=== PATIENT | female | born 1990 | race Caucasian/White ===

== ENCOUNTER → 2016-10-20 | Outpatient (CLI) | payer OTHER ==
[~2016-10-20] MED LIST: CALC500C3 PO; LANS15CA6 PO; PRENTAB26 PO
== END | disposition home or self-care (01) ==
LOC: C.LABSPEC 14:26
PROVIDERS: ATTEND Obstetrics & Gynecology
DX: Z34.03 Encounter for supervision of normal first pregnancy, third trimester (principal)

== ENCOUNTER 2016-10-23 13:12 | Outpatient (CLI) | payer OTHER | END 2016-10-23 15:00 | disposition home or self-care (01) | LOC: C.OPB 13:12 → C.LD 13:12 → C.OPB 15:00 | PROVIDERS: ATTEND Obstetrics & Gynecology | DX: O16.3 Unspecified maternal hypertension, third trimester (principal); Z3A.37 37 weeks gestation of pregnancy ==

== ENCOUNTER 2016-10-28 12:40 | Inpatient (IN) | payer OTHER ==
[~2016-10-28] VITALS: Ht 167.6 cm; Wt 114.8 kg
[2016-10-28] MEDS ORDERED: LACTATED RINGER'S 1000ML 1,000 ML IV SCH (14:18)
[2016-10-28] MEDS ORDERED: LACTATED RINGER'S 1000ML 1,000 ML IV PRN (14:18)
[2016-10-28 14:26] VITALS: Ht 167.6 cm; Wt 114.8 kg
[2016-10-28] MEDS ORDERED: PRENTAB26 PO (14:30)
[2016-10-28] MEDS ORDERED: LANS15CA6 PO (14:30)
[2016-10-28] MEDS ORDERED: CALC500C3 PO (14:30)
[2016-10-28] MEDS ORDERED: MISOPROSTOLTAB 50 MCG TAB PO ONE (14:30)
[2016-10-28] MEDS ORDERED: PATIENT'S ALLERGY INFO NEEDS ENTERED SCH (14:30)
[2016-10-28 14:51] LABS: HEMATOCRIT 40.3 % (37-47); MEAN CELL VOLUME 88.8 fL (80-100); MEAN CORPUSCULAR HEMOGLOBIN 30.8 pg (25-34); MEAN CORPUSCULAR HGB CONC 34.7 g/dl (32-36); MEAN PLATELET VOLUME 10.4 fL (7.4-10.4); PLATELET COUNT 273 K/uL (130-400); RED BLOOD COUNT 4.54 M/uL (4.2-5.4); WHITE BLOOD COUNT 11.82 K/uL (4.8-10.8)
[2016-10-28 15:10] LABS: ALKALINE PHOSPHATASE 383 U/L (45-117); ALT/SGPT 13 U/L (12-78); AST/SGOT 17 U/L (15-37)
[2016-10-28] MEDS ORDERED: NURSING VERBAL MED ORDER ONE (16:15)
[2016-10-28] MEDS ORDERED: DINOPROSTONE 10 MG INSERT PV ONE (20:20)
[2016-10-28] MEDS ORDERED: BUTORPHANOL TARTRATE 1 MG/ML VIAL IV PRN (21:00)
[2016-10-29] MEDS ORDERED: BUPIVACAINE 0.25% 30 ML VIAL ONE (00:10)
[2016-10-29] MEDS ORDERED: EpHEDrine SULFATE INJ 50 MG/ML AMP ONE (00:10)
[2016-10-29] MEDS ORDERED: FENTANYL CITRATE INJ 50 MCG/1 ML 2 ML VIAL ONE (00:11)
[2016-10-29] MEDS ORDERED: FENTANYL 2MCG/ML ROPIV 1.25MG/ML 100ML BAG EPI ONE (00:11)
[2016-10-29] MEDS ORDERED: LACTATED RINGER'S 1000ML 500 ML IV PRN (01:09)
[2016-10-29] MEDS ORDERED: NALOXONE HCL INJ 1 MG in SODIUM CHLORIDE 0.9% 1000ML 1,000 ML IV PRN ×4 (01:09)
[2016-10-29] MEDS ORDERED: EpHEDrine SULFATE INJ 50 MG/ML AMP IV PRN (01:15)
[2016-10-29] MEDS ORDERED: NALBUPHINE HCL INJ 10 MG/ML AMP IV PRN (01:15)
[2016-10-29] MEDS ORDERED: NALOXONE HCL INJ 0.4 MG/1 ML VIAL/CARP IV PRN (01:15)
[2016-10-29] MEDS ORDERED: PROMETHAZINE HCL INJ 25 MG in SODIUM CHLORIDE 0.9% 50ML 50 ML IV PRN (01:15)
[2016-10-29] MEDS ORDERED: ONDANSETRON INJ 2 MG/ML 2 ML VIAL IV PRN (01:15)
[2016-10-29] MEDS ORDERED: DiphenhydrAMINE HCL 50 MG/ML VIAL IV PRN (01:15)
[2016-10-29] MEDS ORDERED: FENTANYL 2MCG/ML ROPIV 1.25MG/ML 100ML BAG EPI PRN (01:15)
[2016-10-29] MEDS ORDERED: OXYTOCIN 30 UNITS/500ML NSS IV ONE (04:43)
[2016-10-29] MEDS ORDERED: LANOLIN OINT EXT PRN ×2 (05:15)
[2016-10-29] MEDS ORDERED: HYDROCORTISONE ACETATE 25 MG SUPP PR PRN (05:15)
[2016-10-29] MEDS ORDERED: OXYTOCIN 30 UNITS/500ML NSS IV PRN (05:15)
[2016-10-29] MEDS ORDERED: DIPHTHERIA/TETANUS/PERTUSSIS 0.5 ML SYR/VIAL IM. ONE (05:15)
[2016-10-29] MEDS ORDERED: ACETAMINOPHEN/CODEINE 300/30MG TAB PO PRN ×2 (05:15)
[2016-10-29] MEDS ORDERED: SUPERCREAM 0.870 % 15GM JAR EXT PRN (05:15)
[2016-10-29] MEDS ORDERED: BENZOCAINE 20% AER SPR 82.5 GM CAN EXT PRN (05:15)
[2016-10-29] MEDS ORDERED: OXYCODONE/ACETAMINOPHEN 5-325 TAB PO PRN (05:15)
[2016-10-29] MEDS: CALCIUM CARBONATE 500 MG CHEWABLE PO PRN ×2 (05:35→12:39)
--- NOTE | 2016-10-29 06:53 | DELIVERY SUMMARY ---
DATE OF OPERATION: 10/29/2016 Ms. Ly is a 26-year-old 1, para 1. Her general health is good. Her blood type is A positive. She was seen in our office for care and delivery, is well dated with an ultrasound. For the past 10 days she has begun to have problems with toxemia of . She has been having weekly NSTs. She had ultrasound for fluid and growth. Blood pressures are gradually increasing. The day of admission she was 37 weeks and 4 days. Some of the diastolics now were close to 100, one was actually 110. Systolics were in the high at 140s. She also now started spill trace protein; therefore, she was kept for induction. On admission her cervix was about 2 cm. She was induced by giving her 50 mcg of Cytotec and then about 4-1/2 hours later using a Cervidil tape. With the Cervidil tape, she went into stronger labor. Membranes ruptured spontaneously and she requested epidural. She received epidural anesthesia. She obtained good pain relief. She had a good strong labor pattern after that in fact she had been given some fluids to slow down the contractions. She went to full dilatation delivered a live via direct occiput anterior position over an intact perineum. was suctioned through the mouth and the nose. Shoulders were delivered without difficulty. Cord was clamped, cut by the father. Cord blood was taken. The placenta was removed without difficulty intact. Inspection of the perineum revealed a right-sided tear of the labia minora and then a perineal laceration at 7 o'clock. These were repaired anatomically by injecting the area with local and then using a 3-0 chromic and a running suture to approximate the right labial laceration and using a 2-0 Vicryl to approximate the posterior vaginal laceration perineal laceration at 7 o'clock. Following this, vag examination revealed no hematoma formation or sponges in the vagina. Estimated 1 and 5 minute Apgars were 7 and 8 respectively. ESTIMATED BLOOD LOSS: 300 mL. I attest to the content of the Intraoperative Record and any orders documented therein. Any exceptio ns are noted below.
--- NOTE | 2016-10-29 07:36 | Anesthesia Procedure Note ---
Anesthesia Epidural Removal Nt Date & Time Oct 29, 2016 at 07:35 Vital Signs Pain Intensity: 1.0 Notes Mental Status: alert / awake / arousable, participated in evaluation Nausea / Vomiting: adequately controlled Pain: adequately controlled Airway Patency, RR, SpO2: stable & adequate BP & HR: stable & adequate Hydration State: stable & adequate Neuraxial Anesthesia: was administered Anesthetic Complications: no major complications apparent, pt satisfied with anesthetic care Epidural: removed without complications, with tip intact
[2016-10-29] MEDS: ACETAMINOPHEN 325 MG TAB PO PRN (07:39)
[2016-10-29] MEDS: PRENATAL VITAMIN TAB PO SCH (07:40)
[2016-10-29] MEDS: FERROUS SULFATE 325 MG TAB PO SCH (07:40)
[2016-10-29] MEDS: DOCUSATE SODIUM 100 MG CAP PO SCH (07:40)
[2016-10-29 08:20] VITALS: BP 110/70; PULSE 90; TEMP 37.1
[2016-10-29 12:35] VITALS: BP 128/91; PULSE 88; TEMP 37.1
[2016-10-29] MEDS: IBUPROFEN 600 MG TAB PO PRN ×2 (12:39→18:52)
[2016-10-29 16:30] VITALS: BP 123/77; PULSE 77; TEMP 36.6
[2016-10-29 19:50] VITALS: BP 112/76; PULSE 84; TEMP 36.7
[2016-10-30 00:25] VITALS: BP 117/76; PULSE 89; TEMP 37; O2SAT 98
[2016-10-30] MEDS: CALCIUM CARBONATE 500 MG CHEWABLE PO PRN (00:31)
[2016-10-30] MEDS: IBUPROFEN 600 MG TAB PO PRN ×5 (00:33→19:50)
[2016-10-30 04:50] VITALS: BP 108/72; PULSE 85; TEMP 36.6; O2SAT 98
[2016-10-30 07:25] LABS: HEMATOCRIT 33.6 % (37-47)
[2016-10-30 08:00] VITALS: BP 122/85; PULSE 82; TEMP 36.8; O2SAT 98
[2016-10-30] MEDS: PRENATAL VITAMIN TAB PO SCH (08:23)
[2016-10-30] MEDS: FERROUS SULFATE 325 MG TAB PO SCH (08:23)
[2016-10-30] MEDS: DOCUSATE SODIUM 100 MG CAP PO SCH ×3 (08:23→19:48)
--- NOTE | 2016-10-30 08:53 | Progress Note ---
Subjective Oct 30, 2016. Subjective conversation w/ patient Ambulation: ambulating normally Voiding: no voiding problems Passing Gas: Yes Diet Tolerance: Regular Diet Lochia: Small Feeding Type: Breast Feeding Review of Systems Constitutional: + fever Objective Vital Signs Date Time Temp Pulse Resp B/P Pulse Ox O2 Delivery O2 Flow Rate FiO2 10/30/16 04:50 36.6 85 18 108/72 98 Room Air 10/30/16 00:25 98 Room Air 10/30/16 00:25 37.0 89 18 117/76 98 Room Air 10/29/16 19:50 36.7 84 22 112/76 Room Air 10/29/16 16:30 Room Air 10/29/16 16:30 36.6 77 20 123/77 Room Air 10/29/16 12:35 37.1 88 20 128/91 Room Air Physical Exam General Appearance: WELL-APPEARING Respiratory/Chest: lungs clear Abdomen: non tender Fundus: Firm, Non-Tender Extremities: no pedal edema, no calf tenderness Laboratory Results Last 24 Hours Test 10/30/16 06:24 Hemoglobin 11.3 g/dL Hematocrit 33.6 % Assessment and Plan Post- Day#: 1
[2016-10-30 15:45] VITALS: BP 125/84; PULSE 85; TEMP 36.7
[2016-10-30] MEDS ORDERED: BISACODYL 5 MG TABEC PO SCH (20:00)
[2016-10-30 23:10] VITALS: BP 111/80; PULSE 91; TEMP 36.6
[2016-10-31] MEDS: IBUPROFEN 600 MG TAB PO PRN ×3 (02:49→17:14)
[2016-10-31 05:25] VITALS: BP 105/65; PULSE 87; TEMP 36.7
[2016-10-31] MEDS: ACETAMINOPHEN 325 MG TAB PO PRN (05:32)
[2016-10-31] MEDS ORDERED: BISACODYL 10 MG SUPP PR PRN (07:00)
[2016-10-31 08:05] VITALS: BP 118/72; PULSE 77; TEMP 37; O2SAT 98
[2016-10-31] MEDS: PRENATAL VITAMIN TAB PO SCH (08:31)
[2016-10-31] MEDS: FERROUS SULFATE 325 MG TAB PO SCH (08:31)
[2016-10-31] MEDS: DOCUSATE SODIUM 100 MG CAP PO SCH (08:31)
--- NOTE | 2016-10-31 11:22 | Progress Note ---
Subjective Oct 31, 2016. Subjective conversation w/ patient Ambulation: ambulating normally Voiding: no voiding problems Passing Gas: Yes Diet Tolerance: Regular Diet Lochia: Small Feeding Type: Breast Feeding Review of Systems Constitutional: + fever Objective Vital Signs Date Time Temp Pulse Resp B/P Pulse Ox O2 Delivery O2 Flow Rate FiO2 10/31/16 08:05 98 Room Air 10/31/16 08:05 37.0 77 18 118/72 98 Room Air 10/31/16 05:25 36.7 87 18 105/65 Room Air 10/30/16 23:10 36.6 91 18 111/80 Room Air 10/30/16 23:10 Room Air 10/30/16 15:45 36.7 85 20 125/84 Room Air 10/30/16 15:45 Room Air Physical Exam General Appearance: WELL-APPEARING Respiratory/Chest: lungs clear Abdomen: non tender Fundus: Firm, Non-Tender Extremities: no pedal edema, no calf tenderness Assessment and Plan Post- Day#: 2
--- NOTE | 2016-10-31 11:24 | Discharge Instructions ---
Discharge Instructions Admission Reason for Admission: Nst, Toxemia Of Discharge Discharge Diagnosis / Problem: toximia Discharge Goals Goal(s): Routine recovery after delivery Activity Recommendations Activity Limitations: as noted below ACTIVITY RECOMMENDATIONS: * Gradual return to full activity over the next 2-3 weeks. * No lifting - nothing heavier than baby over the next 2-3 weeks. * Do not engage in vigorous exercise, sexual activity or sports until cleared by your physician. * Do not drive or operate any motorized equipment until cleared by your physician. * You may shower/bathe daily. DIET: Resume Previous Diet If Breast-feeding: * Increase caloric intake by 500 calories, eat 3 well balanced meals, 2 high protein snacks a day and drink 6-8 8oz. glasses of fluid per day. BREAST CARE: If you are not breast feeding: * Wear a supportive bra 24 hours a day for one to two weeks. * Avoid stimulating your breasts and nipples as much as possible during the first few weeks after delivery. * When taking a shower, have the warm water hit your back, not breasts. * When your breasts feel full, apply ice packs. Usually three to four times a day helps ease the discomfort. * Take a mild pain medication (Tylenol / Motrin) when you are uncomfortable. If breast feeding: * Use breast milk to lubricate nipples. Lansinoh cream may be used for sore nipples. You do not need to remove cream prior to breast feeding. If using a different brand of cream, check the label for directions regarding removal of cream prior to nursing. * Wear a supportive bra. * If having problems with breasts or breast feeding, call a political consultant or your health care provider. OVER THE COUNTER MEDICATION: * For discomfort or pain, you may use Acetaminophen (Tylenol), Ibuprofen (Advil ), or Naproxen (Aleve) following the package directions. * For constipation you may use Colace following the package directions. SPECIAL CARE INSTRUCTIONS: * Vaginal rest (no tampons, douching, intercourse) until after doctor 's visit. * control as discussed with doctor. * Verbalizes understanding of car seat law as reviewed with patient nursing. * Car Seat hand-out given and reviewed with patient by nursing. * Shaken baby information reviewed with patient by nursing. Call you doctor if: * Temperature greater than or equal to 100.4 degrees F or 38.0 degrees C. Take your temperature twice daily for a week. * Bleeding becomes heavier than the heaviest part of your period - saturating a sanitary pad within an hour. * Passing large clots. * Bleeding has a foul smelling odor. * Signs and symptoms of phlebitis: leg pain, warm, red or swollen area on leg. * "Baby Blues" lasting longer than two weeks. ++ If you have had a and incision has increased pain, redness, swelling, presence of any drainage, or if the incision starts to open up. If you have any questions or concerns, call your health care practitioner at [phone]. FOLLOW-UP VISIT: Please call the office at to schedule a 6 week examination. . Current Hospital Diet Patient's current hospital diet: Regular Diet Discharge Diet Recommended Diet: Regular Diet Pending Studies Studies pending at discharge: no Medical Emergencies . Who to Call and When: Medical Emergencies: If at any time you feel your situation is an emergency, please call 911 immediately. . Non-Emergent Contact Non-Emergency issues call your: Care Transition Coordinator Call Non-Emergent contact if: temperature is above 100.5 . . "Provider Documentation" section prepared by Davonte Rees. VTE Core Measure Inpt VTE Proph given/why not?: Treatment not indicated
[2016-10-31 15:30] VITALS: BP 135/88; PULSE 83; TEMP 36.9
[2016-10-31 19:13] VITALS: BP_DIAS 88; PULSE 83; TEMP 36.9
== END 2016-10-31 19:17 | disposition home or self-care (01) | DRG 775 ==
LOC: C.LD 12:40 → C.OPB 12:40 → C.LD 14:22 → C.OBG 10-29 08:29
PROVIDERS: ADMIT Obstetrics & Gynecology; ATTEND Obstetrics & Gynecology
PROC: 0HQ9XZZ Repair Perineum Skin, External Approach (ICD-10-PCS; principal; 2016-10-29)
PROC: 10E0XZZ Delivery of Products of Conception, External Approach (ICD-10-PCS; principal; 2016-10-29)
DX: O70.0 First degree perineal laceration during delivery (principal); Z3A.37 37 weeks gestation of pregnancy; Z37.0 Single live birth

== ENCOUNTER → 2016-12-10 | Outpatient (CLI) | payer OTHER | END | disposition home or self-care (01) | LOC: C.PAPS 08:51 | PROVIDERS: ATTEND Obstetrics & Gynecology | DX: Z39.2 Encounter for routine postpartum follow-up (principal) ==

== ENCOUNTER → 2017-09-28 | Outpatient (CLI) | payer OTHER ==
[~2017-09-28] VITALS: Ht 166.4 cm; Wt 107.6 kg
[2017-09-28 13:47] VITALS: BP 144/97; PULSE 80; Ht 166.4 cm; Wt 107.6 kg
== END | disposition home or self-care (01) ==
LOC: C.NEUR 12:45
PROVIDERS: ATTEND Internal Medicine Pulmonary Disease
DX: G47.411 Narcolepsy with cataplexy (principal); G47.30 Sleep apnea, unspecified

== ENCOUNTER → 2017-12-13 | Outpatient (CLI) | payer OTHER | END | disposition home or self-care (01) | LOC: C.PAPS 16:36 | PROVIDERS: ATTEND Obstetrics & Gynecology | DX: Z12.4 Encounter for screening for malignant neoplasm of cervix (principal) ==